=== PATIENT | female | born 2000 | race Hispanic/Latino ===

== ENCOUNTER 2023-11-21 21:51 | Emergency (ER) | payer OTHER, MEDICAID, SELFPAY ==
[2023-11-21] VITALS (8 sets, daily range): BP systolic 101–114; BP diastolic 57–78; PULSE 72–82; RESP 18; TEMP 36.8; O2SAT 95–100; BMI 21.9
--- NOTE | 2023-11-21 22:24 | ED_ITS ---
HPI - General Adult General Chief complaint: Vaginal Bleeding Stated complaint: had , bleeding and pain Time Seen by Provider: 11/21/23 21:55 Source: patient Mode of arrival: Ambulatory History of Present Illness HPI narrative: 23-year-old female. Toe Stapler P0. On of last week underwent an elective . Stated that she took the 1st pill on in the 2nd pill on Monday. She stated that she was about 7 weeks along at the time of the . States she had quite a bit of bleeding after the 2nd pill but things seemed to lessen and then earlier today had increased bleeding. No fevers. No vomiting. Is having some abdominal cramping. No urinary symptoms or change in bowel habits. Review of Systems Review of Systems Narrative: See HPI Patient History Social History Smoking Status: Never smoker Smoking Status: Never smoker Exam Initial Vital Signs Initial Vital Signs: Vital Signs Temperature 98.2 F 11/21/23 22:17 Pulse Rate 72 11/21/23 22:17 Respiratory Rate 18 11/21/23 22:17 Blood Pressure 114/78 11/21/23 22:17 Pulse Oximetry 98 11/21/23 22:17 Oxygen Delivery Method Room Air 11/21/23 22:17 Const General: cooperative, comfortable and No ill appearing HENMT Head: normal to inspection and normocephalic Resp Effort & Inspection: normal respiratory effort Cardio Rate: regular rate GI Inspection: normal to inspection and non-distended Palpation: soft, No firm, No guarding and No tender Neuro General: patient alert, patient awake and moves all extremities Extrem General: capillary refill normal Course Orders Ordered: ED Orders 11/21/23 22:20 ABO RH Type Stat Basic Metabolic Panel Stat Complete Blood Count AUTO DIFF Stat HCG Quantitative /Beta subunit Stat 11/21/23 22:25 US pelvic complete Stat 11/21/23 23:45 Consult to Obstetrics Stat Vital Signs Vital signs: Vital Signs - 8 hr 11/21/23 22:17 11/21/23 22:31 11/21/23 22:32 Temperature 98.2 F Pulse Rate 72 76 Respiratory Rate 18 Blood Pressure 114/78 Pulse Oximetry 98 100 100 Oxygen Delivery Method Room Air Room Air 11/21/23 22:32 Temperature Pulse Rate Respiratory Rate Blood Pressure 101/66 Pulse Oximetry Oxygen Delivery Method Medical Decision Making Lab Data Lab results reviewed: Yes I reviewed the patient's lab results. 11/21/23 22:20 11/21/23 22:20 Labs: Lab Results 11/21/23 Range/Units 22:20 WBC 12.1 H (4.5-11.0) X10^3/uL RBC 3.49 L (4.0-5.2) X10^6/uL Hgb 10.6 L (12.0-16.0) g/dL Hct 30.8 L (36-46) % MCV 88.1 (80-100) fL MCH 30.3 (26-34) PG MCHC 34.4 (30-36) % RDW 14.1 (11.6-14.8) % Plt Count 335 (150-400) X10^3/uL Neut % (Auto) 71.3 (50-75) % Lymph % (Auto) 21.8 L (25-40) % [place] % (Auto) 5.0 (3-14) % Eos % (Auto) 1.4 L (2-4) % Baso % (Auto) 0.5 (0-2) % Neut # (Auto) 8700 H (3672-5894) /uL Lymph # (Auto) 2600 (3738-3331) /uL [place] # (Auto) 600 (0-900) /uL Eos # (Auto) 200 (0-450) /uL Baso # (Auto) 100 (0-100) /uL Sodium 136 L (137-145) mmol/L Potassium 3.8 (3.4-5.1) mmol/L Chloride 105 (98-107) mmol/L Carbon Dioxide 24 (22-32) mmol/L BUN 8 (7-17) mg/dL Creatinine 0.57 (0.52-1.04) mg/dL Estimated GFR > 60 (>60) mL/min BUN/Creatinine Ratio 14.0 (6-22) Glucose 95 (70-100) mg/dL Calcium 8.2 L (8.4-10.2) mg/dL HCG, Quant 1793.1 mIU/mL Blood Type O Positive Imaging Data US - OB: Radiologist's Impression: PROCEDURE: US PELVIC COMPLETE INDICATIONS: Vaginal bleeding after elective TECHNIQUE: Real-time scanning was performed of the pelvic organs, with image documentation. Additional endovaginal scanning was necessary due to incomplete visualization of the adnexal and endometrial structures by transabdominal scanning. COMPARISON: None. FINDINGS: Uterus: 8.2 x 3.6 x 5.5 cm. Endometrium measures 13 mm. There is a 4.1 by 1.7 cm focal hypervascular region. Ovaries: Nonenlarged bilaterally. Possible small corpus luteum or hemorrhagic cyst is seen in the right ovary. Other: No pathologic free fluid. IMPRESSION: 4.1 x 1.7 cm focal hypervascular region within the endometrium, possibly retained products in the setting of persistent bleeding. MDM Narrative Medical decision making narrative: Vital signs unremarkable. Has a benign exam. His Rh positive. Ultrasound does show what appears to be retained products but it has only been approximately 4 days since the 2nd pill treatment. No fevers. Low suspicion for septic . Discussed the case with Dr. Kim. Plan will be is to discharge patient home with return precautions. I suspect that the patient's symptoms will improve over the next 24-48 hours. Patient expressed understanding and agreement with the plan. Discharge Plan Departure Patient Disposition: Home Clinical Impression: Incomplete Instructions: DI for Vaginal Bleeding Activity Restrictions/Additional Instructions: Continue to follow all of the instructions [facility] . I would not be surprised if he had continued bleeding over the next 24-48 hours. But things should start to improve after that. If you start to get worsening bleeding, worsening pain, fevers please return to the emergency department. Contact the student activities director department with the number provided below for follow-up. Referrals: Minna Kim DO [Physician] - Stand Alone Forms: Patient Portal/API
[2023-11-21 22:40] LABS: Add Manual Diff / Slide Review NO; Basophils Absolute Auto 100 /uL (0-100); Basophils Percent Auto 0.5 % (0-2); Eosinophils Absolute Auto 200 /uL (0-450); Eosinophils Percent Auto 1.4 % (2-4); Hematocrit 30.8 % (36-46); Hemoglobin 10.6 g/dL (12.0-16.0); Lymphocytes Absolute Auto 2600 /uL (1100-4500); Lymphocytes Percent Auto 21.8 % (25-40); Mean Corpuscular HGB Conc 34.4 % (30-36); Mean Corpuscular Hemoglobin 30.3 PG (26-34); Mean Corpuscular Volume 88.1 fL (80-100); Monocytes Absolute Auto 600 /uL (0-900); Neutrophils Absolute Auto 8700 /uL (1500-7000); Neutrophils Percent Auto 71.3 % (50-75); Platelet Count 335 X10^3/uL (150-400); Red Blood Cell Count 3.49 X10^6/uL (4.0-5.2); Red Cell Distribution Width 14.1 % (11.6-14.8); White Blood Cell Count 12.1 X10^3/uL (4.5-11.0)
[2023-11-21 22:48] LABS: Blood Urea Nitrogen 8 mg/dL (7-17); Calcium 8.2 mg/dL (8.4-10.2); Carbon Dioxide 24 mmol/L (22-32); Chloride 105 mmol/L (98-107); Estimated Glomerular Filt Rate > 60 mL/min (>60); Glucose 95 mg/dL (70-100); HEMOLYSIS < 15 (0-50); Potassium 3.8 mmol/L (3.4-5.1); Sodium 136 mmol/L (137-145)
[2023-11-21 23:05] LABS: HCG Quantitative /Beta subunit 1793.1 mIU/mL
== END 2023-11-21 23:58 | disposition home or self-care (01) ==
PROVIDERS: Emergency Provider Emergency Medicine
DX: O07.4 Failed attempted termination of pregnancy without complication (principal); R79.89 Other specified abnormal findings of blood chemistry
CPT/HCPCS: 36415; 76830; 76856; 80048; 84702; 85025; 86900; 86901; 99283; 99284